=== PATIENT | male | born 1975 | race Caucasian/White ===

== ENCOUNTER 2018-03-25 22:36 | Emergency (ER) | payer OTHER ==
[~2018-03-25] VITALS: Ht 175.3 cm; Wt 74.8 kg
--- NOTE | 2018-03-25 22:36 | NUR ---
PATIENT BIBA TAKEN TO ER BED 2
[2018-03-25 22:41] VITALS: BP 139/103
[2018-03-25] MEDS ORDERED: KETOROLAC 30 MG/ML VIAL IM ONE (22:55)
[2018-03-25] MEDS ORDERED: KETOROLAC 15 MG/ML VIAL ONE (22:58)
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
[2018-03-25] MEDS ORDERED: NEOMYCIN/POLYMYXIN/BACITRACIN 0.9 GM/1 PKT TP ONE ×2 (23:14→23:15)
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
== END 2018-03-25 23:33 | disposition home or self-care (01) ==
LOC: MED 22:36
DX: S90.822A Blister (nonthermal), left foot, initial encounter (principal); S90.821A Blister (nonthermal), right foot, initial encounter; I10 Essential (primary) hypertension; X58.XXXA Exposure to other specified factors, initial encounter; Y93.02 Activity, running; Y92.89 Other specified places as the place of occurrence of the external cause; Y99.8 Other external cause status
CPT/HCPCS: 96372; 99283; J1885